=== PATIENT | female | born 1950 | race Hispanic/Latino ===

== ENCOUNTER 2020-01-25 17:57 | Emergency (ER) | payer MEDICARE ==
[~2020-01-25] VITALS: Ht 167.6 cm; Wt 77.1 kg
[~2020-01-25 17:57] MED LIST: BP MEDICINE; Z.0.METFORMIN HCL100; lantus
[2020-01-25] MEDS ORDERED: ASPIRIN 81 MG CHEW TAB PO ONE (18:45)
[2020-01-25 19:19] LABS: BASOPHILS # (AUTO) 0.1 (0.0-0.1); BASOPHILS % 0.5 % (0.0-1.0); EOSINOPHILS % 0.1 % (0.0-6.0); HEMATOCRIT 34.9 % (34.2-44.1); HEMOGLOBIN 10.8 g/dL (12.0-16.0); LYMPHOCYTES % 20.7 % (18.0-39.1); MEAN CORPUSCULAR HEMOGLOBIN 25.3 pg (28-32); MEAN CORPUSCULAR HGB CONC 30.9 g/dL (31-35); MEAN CORPUSCULAR VOLUME 81.7 fL (81-99); MONOCYTES # (AUTO) 1.3 (0.2-0.8); NEUTROPHILS # (AUTO) 9.9 (2.1-6.9); NEUTROPHILS % 69.1 % (38.7-80.0); PLATELET COUNT 344 x10e3/uL (140-360); RED BLOOD COUNT 4.27 x10e6/uL (3.6-5.1); RED CELL DISTRIBUTION WIDTH 13.7 % (11.7-14.4)
[2020-01-25 19:31] LABS: ALBUMIN 3.7 g/dL (3.5-5.0); ANION GAP 17.5 mmol/L (8-16); CALCIUM 8.8 mg/dL (8.4-10.2); POTASSIUM 4.5 mmol/L (3.5-5.1)
--- OUTSIDE RECORDS SUMMARY | 2020-01-25 19:37 | XMS REPORT | Clinical Summary ---
Author Author [facility] Organization [facility] Address Unknown Phone Unavailable Care Team Providers Care Journeyman Carpenter Name Role Phone Aaron Mayre MD PCP [phone] Allergies Not on File Medications Not on file Active Problems Not on file Encounters Care Team Description Date Type Specialty 11/12/2019 Travel Aaron Mayer MD Contact with and (suspected) exposure to other viral communicable diseases (Primary Dx) 10/29/2019 Transcribe Access Orders after 01/24/2019 Social History Date Tobacco Use Types Packs/Day Years Used Never Assessed Sex Assigned at Date Recorded Not on file Last Filed Vital Signs Not on file Plan of Treatment Health Maintenance Due Date Last Done Comments BREAST CANCER SCREENING 01/29/1998 COLONOSCOPY SCREENING 01/29/1998 SHINGLES VACCINES (#1) 01/29/1998 65+ PNEUMOCOCCAL VACCINE 01/29/2013 (1 of 1 - PPSV23) INFLUENZA VACCINE 11/13/2019 Procedures Comments Procedure Name Priority Date/Time Associated Diag nosis COVID-19 QUALITATIVE PCR Routine 11/12/[address] with and 1:13 PM CDT (suspected) exposure to other viral communicable diseases after 01/24/2019 Results * COVID-19 qualitative PCR (11/12/2019 1:13 PM CDT) Interpretation Negative results do not [facility] preclude 2019-nCoV infection [facility] and should not be used as the HOSPITAL sole basis for treatment or other patient management decisions. Negative results must be combined with clinical observations, patient history, and epidemiological information. COVID-19 Not-Detected Not-Detected [facility] qualitative PCR [facility] result [facility]OSPITAL COVID-19 See link below for PDF Lab [facility] qualitative PCR ReportComment: Case Number: [facility] [id number] [facility] Specimen Nasopharyngeal swab Performing Organization Address City/State/ZIP Code P jeanna Number [facility] DEPARTMENT OF [address] [place] [address] PATHOLOGY AND GENOMIC MEDICINE [address] [address] [facility] after 01/24/2019 Insurance Type Payer Benefit Subscriber ID Effective Phone Address Plan / Dates Group HMO [facility] MEDICARE AARP [id number] 2019-P MEDICARE resent ADVANTAGE PLAN HMO-POS ([id number]) Advance Directives For more information, please contact: [phone] Patient Employee Counselor Explanation Type Date Recorded Advance Directives, Living Will and Medical Power of Electrical Research Engineer
--- OUTSIDE RECORDS SUMMARY | 2020-01-25 19:38 | XMS REPORT | Continuity of Care Document ---
Author Author [facility] t Organization [facility] Address [address] [place] [address] Phone Unavailable Care Team Providers Care [employer]s Worker Name Role Phone RANJIT ESTRADA M.D. PCP MAYER, BARBARA Attphys Unavailable SANDHIR, AMBICA Attphys Unavailable Ileana, [place] Attphys Unavailable MERCED BLACKWELL M.D., MERCED WRIGHT M.D. Attphys Un available AFUWAPE, FERNANDAKUMAN Attphys Unavailable MERCED BLACKWELL M.D., Dolly BLACKWOOD Admphys Unavailable AFUWAPE, LUKUMAN Admphys Unavailable Payers Payer Name Policy Type Policy Number Effective Date Expiration Date S miranda [facility] MEDICAREAARP MEDICARE ADVANTAGE PLAN HMO-POS (WELLMED)[id number] [id number] 2019 00:00 :00 Viral Chappell Problems This patient has no known problems. Allergies, Adverse Reactions, Alerts Allergy Name Allergy Type Status Severity Reaction(s) Onset Date Inacti ve Date Treating Clinician Comments Source No Known Allergies DA Active U 2015-07-16 00:00:00 [facility] Social History Social Habit Start Date Stop Date Quantity Comments Source Sex Assigned At Estrella Chappell Medications Ordered Medication Name Filled Medication Name Start Date Stop Da te Current Medication? Ordering Clinician Indication Dosage Frequency Signature (SIG) Comments Components Source Bp Medicine Bp Medicine Yes C [facility] Lantus Lantus Yes [address] [facility] Metformin Hcl (Metformin Hcl Er) 1,000 Mg Tab.er.24 Me tformin Hcl (Metformin Hcl Er) 1,000 Mg Tab.er.[address] [facility] Procedures Procedure Date / Time Performed Performing Clinician Sour e COVID-19 QUALITATIVE PCR 2019-11-12 13:13:00 Barbara Mayer [facility] X-ray of chest, two views 2019-05-07 00:00:00 PHU WHITE I [facility] Plan of Care Planned Activity Planned Date Details Comments Source Future Scheduled Test 2019-11-13 00:00:00 INFLUENZA VACCINE [code = INFLUENZA VACCINE] [facility] Scheduled Test 2013-01-29 00:00:00 65+ PNEUMOCOCCAL V ACCINE (1 of 1 - PPSV23) [code = 65+ PNEUMOCOCCAL VACCINE (1 of 1 - PPSV23)] [facility] Future Scheduled Test 1998-01-29 00:00:00 BREAST CANCER SCRE ENING [code = BREAST CANCER SCREENING] [facility] Future Scheduled Test 1998-01-29 00:00:00 COLONOSCOPY SCREEN ING [code = COLONOSCOPY SCREENING] [facility] Scheduled Test 1998-01-29 00:00:00 SHINGLES VACCINES (#1) [code = SHINGLES VACCINES (#1)] [facility] Encounters Start Date/Time End Date/Time Encounter Type Admission Type Attendi [facility] Care Department Encounter ID Source 2020-01-21 13:36:00 2020-01-21 13:36:00 Outpatient MHSE [id number] [facility] 2019-11-12 00:00:00 2019-11-12 00:00:00 Outpatient ESTRADA MAYER [facility] [id number] Viral Chappell 2019-05-07 15:14:00 2019-05-07 17:14:00 Departed Emergency Room 1 PHU WHITE [facility] [id number] [facility] 2019-01-18 15:11:00 2019-01-18 15:11:00 Emergency E MHSE [id number] [facility] Results Test Description Test Time Test Comments Results Result Comments Source CHEST 2 VIEWS 2019-05-07 16:27:00 [facility] [address] [address] Patient Name: CATARINA KESSLER MR #: [id number] : 1950 Age/Sex: 69/F Req #: [id number] Adm Physician: Ordered by: PHU WHITE DO Report #: [id number] Location: ER Room/Bed: Procedure: [id number] DX/CHEST 2 VIEWS Exam Date: 05/07/19 Exam Time: 1530 REPORT STATUS: Signed Chest, 2 views, 05/07/2019. History: Fever and cough. Comparison: None available. Findings: The cardiomediastinal silhouette and pulmonary vasculature are within normal limits. The lungs are clear without evidence of consolidation or pleural effusion. Degenerative changes are present in the thoracic spine. There are no acute osseous or soft tissue abnormalities. Impression: No acute cardiopulmonary abnormality. Signed by: Joey Murphy on 05/07/2019 4:27 PM Dictated By: JOEY MURPHY MD 26 Transcribed By: ALEISHA on 05/07/197 COPY TO: PHU WHITE DO Influenza Virus Types A,B Antigen 2019-05-07 16:15:00 Test Item Influenza Virus Types A,B Antigen (test code = 52505-5) [facility] Streptococcus [id number] 16:07:00* Test Item Value Reference Range Interpretation Comments Group A Streptococcus Screen (test code = 57666-3) POSITIVE NEG [facility]IVE [facility]/BILAT/[id number] 13:08:54 CLINICAL INDICATION: M79.604 Pain in right legM79.605 Pain in left legMODALI TY: [employer] PreirusTECHNIQUE: Real time, high frequency Doppler wa veform and color imaging of the lower extremities are performed.COMPARISON: no ne FINDINGS:Common femoral, greater saphenous, femoral, popliteal and proximal calf veins are imaged. Spontaneous and phasic flow are observed. Vessels are c ompressible without evidence of intraluminal thrombus. No evidence of venous ref lux.IMPRESSION:No evidence of DVT in the bilateral lower extremities.POC Glucose, [id number] 12:24:00* Test Item Value Reference Range Interpretation Comments POC Glucose (test code = POCGLUC) 241 mg/dL 70-115 H Notify RN or MDIf you consider your patient critically ill, the [place] Accu-Chek InformII metershould not be used for Glucose determinations.Draw a venous Glucose and send to the Main Lab for Analysis. Culture, Blood [id number] 09:46:00Specimen: BloodCollected: 02/12/2017 20:23 Status: Final Last Updated: 02/18/2017 09:46 (1) ER Bed 14 Culture Result (Final) (Final) No Growth After 5 Days Culture, Blood Routine 2017-02-18 09:46:00Specimen: BloodCollected: 02/12/2017 20:00 Status: Final Last Updated: 02/18/2017 09:46 (1) ER Bed 14 Culture Result (Final) (Final) No Growth After 5 Days POC Glucose, [id number] 08:44:00* Test Item Value Reference Range Interpretation Comments POC Glucose (test code = POCGLUC) 159 mg/dL 70-115 H Notify RN or MDIf you consider your patient critically ill, the [place] Accu-Chek InformII metershould not be used for Glucose determinations.Draw a venous Glucose and send to the Main Lab for Analysis. CBC with [id number] 06:08:00* Test Item Value Reference Range Interpretation Comments WBC (test code = WBC) 17.0 K/cumm 4.4-10.5 H RBC (test code = RBC) 3.33 M/cumm 3.75-5.20 L Hemoglobin (test code = HGB) 8.9 gm/dL 12.2-14.8 L Hematocrit (test code = HCT) 28.3 % 36.5-44.4 L MCV (test code = MCV) 85.0 fL 80-100 N MCH (test code = MCH) 26.8 pg 27.0-32.5 L MCHC (test code = MCHC) 31.5 g/dL 32.0-37.5 L RDW (test code = RDW) 14.0 % 11.5-14.5 N Platelet Count (test code = PLTCT) 494 K/cumm 140-440 H MPV (test code = MPV) 6.8 fL Diff Method (test code = DIFFM) Auto Neutrophil (test code = NEUT) 81.7 % 36-70 H Lymphocyte (test code = LYMPH) 13.8 % 12-44 N Monocyte (test code = MONO) 3.8 % 0-11 N Eosinophil (test code = EOS) 0.6 % 0-7 N Basophil (test code = BASO) 0.2 % 0-2 N Neutro Abs (test code = ANEUT) 13.9 K/cumm 1.6-7.4 H Lymph Abs (test code = ALYMPH) 2.3 K/cumm 0.5-4.6 N [place] Abs (test code = AMONO) 0.7 K/cumm 0.0-1.2 N Eos Abs (test code = AEOS) 0.10 K/cumm 0.00-0.74 N Baso Abs (test code = ABASO) 0.0 K/cumm 0.00-0.21 N Magnesium, [id number] 05:53:00* Test Item Value Reference Range Interpretation Comments Magnesium (test code = MG) 1.7 mg/dL 1.7-2.5 N [id number] 05:53:00* Test Item Value Reference Range Interpretation Comments Phosphorus (test code = PO4) 3.0 mg/dL 2.70-4.50 N Basic Metabolic [id number] 05:53:00* Test Item Value Reference Range Interpretation Comments Sodium (test code = NA) 134 mmol/L 135-145 L Potassium (test code = K) 4.3 mmol/L 3.5-5.1 N Chloride (test code = CL) 96 mmol/L 98-105 L Carbon Dioxide (test code = CO2) 25 mmol/L 22-29 N Glucose (test code = GLU) 182 mg/dL 70-115 H Blood Urea Nitrogen (test code = BUN) 7 mg/dL 8-23 L Creatinine (test code = CREAT) 0.7 mg/dL 0.5-0.9 N Calcium (test code = CA) 8.1 mg/dL 8.3-10.5 L BUN/Creatinine Ratio (test code = BCRATIO) 10.0 Anion Gap (test code = AGAP) 13 mmol/L 7-16 N Estimated GFR (test code = GFR) >60 mL/min/1.73m2 eGFR (estimated Glomerular Filtration Rate) is an estimated value,calculated from the patient's serum creatinine using the MDRD equation.It is NOT the patient's actual GFR. The eGFR provides a more clinicallyuseful measure of kidney disease than serum creatinine alone.This calculation takes sex and race into account, if the informationis provided. If the race is not provided, and the patient isAfrican-Nigerien, multiply by 1.212. If sex is not provided, and thepatient is female, multiply by 0.742. Results for patients <18 years ofage have not been validated by the MDRD study and should be interpretedwith caution.eGFR Result Interpretation:eGFR > or = 60 is in the Normal RangeeGFR < 60 may mean kidney diseaseeGFR < 15 may mean kidney failureRanges recommended by the National Kidney Found ation,http://nkdep.nih.gov POC Glucose, [id number] 20:27:00* Test Item Value Reference Range Interpretation Comments POC Glucose (test code = POCGLUC) 222 mg/dL 70-115 H Notify RN or MDIf you consider your patient critically ill, the [place] Accu-Chek InformII metershould not be used for Glucose determinations.Draw a venous Glucose and send to the Main Lab for Analysis. POC Glucose, [id number] 17:55:00* Test Item Value Reference Range Interpretation Comments POC Glucose (test code = POCGLUC) 165 mg/dL 70-115 H Notify RN or MDIf you consider your patient critically ill, the [place] Accu-Chek InformII metershould not be used for Glucose determinations.Draw a venous Glucose and send to the Main Lab for Analysis. Urinalysis [id number] 13:03:00* Test Item Value Reference Range Interpretation Comments Color (test code = COLOR) Yellow Yellow,Straw,Pl yellow N Clarity (test code = CLAR) Clear Clear N Specific [place] (test code = SPGR) 1.005 1.001-1.035 N pH (test code = PH) 6.0 5.0-9.0 N Ketone (test code = KET) 15 mg/dL Negative A Glucose (test code = GLUCUR) Negative mg/dL Negative N Protein (test code = PROT) Negative mg/dL Negative N Bilirubin (test code = BILI) Negative mg/dL Negative N Occult Blood (test code = UDOB) Mod to Large Negative A Urobilinogen (test code = UROB) 4.0 mg/dL 0.2-1.0 H Nitrite (test code = NIT) Negative Negative N Leuk Esterase (test code = LEUK) Large Negative A Micros Exam (test code = MEXAM) Indicated Epithelial Cells (test code = EPI) 15-19 /LPF 0-30 A WBC, Urine (test code = UWBC) 15-19 /HPF 0-5 A RBC, Urine (test code = URBC) 0-3 /HPF 0-5 A Bacteria (test code = BACT) Many /HPF Yeast (test code = YEAST) Many /HPF POC Glucose, [id number] 12:32:00* Test Item Value Reference Range Interpretation Comments POC Glucose (test code = POCGLUC) 151 mg/dL 70-115 H Notify RN or MDIf you consider your patient critically ill, the [place] Accu-Chek InformII metershould not be used for Glucose determinations.Draw a venous Glucose and send to the Main Lab for Analysis. POC Glucose, [id number] 08:04:00* Test Item Value Reference Range Interpretation Comments POC Glucose (test code = POCGLUC) 102 mg/dL 70-115 N Notify RN or MDIf you consider your patient critically ill, the [place] Accu-Chek InformII metershould not be used for Glucose determinations.Draw a venous Glucose and send to the Main Lab for Analysis. Basic Metabolic [id number] 06:01:00* Test Item Value Reference Range Interpretation Comments Sodium (test code = NA) 134 mmol/L 135-145 L Potassium (test code = K) 3.8 mmol/L 3.5-5.1 N Chloride (test code = CL) 97 mmol/L 98-105 L Carbon Dioxide (test code = CO2) 25 mmol/L 22-29 N Glucose (test code = GLU) 94 mg/dL 70-115 N Blood Urea Nitrogen (test code = BUN) 8 mg/dL 8-23 N Creatinine (test code = CREAT) 0.7 mg/dL 0.5-0.9 N Calcium (test code = CA) 7.9 mg/dL 8.3-10.5 L BUN/Creatinine Ratio (test code = BCRATIO) 11.4 Anion Gap (test code = AGAP) 12 mmol/L 7-16 N Estimated GFR (test code = GFR) >60 mL/min/1.73m2 eGFR (estimated Glomerular Filtration Rate) is an estimated value,calculated from the patient's serum creatinine using the MDRD equation.It is NOT the patient's actual GFR. The eGFR provides a more clinicallyuseful measure of kidney disease than serum creatinine alone.This calculation takes sex and race into account, if the informationis provided. If the race is not provided, and the patient isAfrican-Nigerien, multiply by 1.212. If sex is not provided, and thepatient is female, multiply by 0.742. Results for patients <18 years ofage have not been validated by the MDRD study and should be interpretedwith caution.eGFR Result Interpretation:eGFR > or = 60 is in the Normal RangeeGFR < 60 may mean kidney diseaseeGFR < 15 may mean kidney failureRanges recommended by the National Kidney Found ation,http://nkdep.nih.gov Magnesium, [id number] 06:01:00* Test Item Value Reference Range Interpretation Comments Magnesium (test code = MG) 1.4 mg/dL 1.7-2.5 L [id number] 06:01:00* Test Item Value Reference Range Interpretation Comments Phosphorus (test code = PO4) 2.9 mg/dL 2.70-4.50 N CBC with [id number] 05:55:00* Test Item Value Reference Range Interpretation Comments WBC (test code = WBC) 17.0 K/cumm 4.4-10.5 H RBC (test code = RBC) 3.37 M/cumm 3.75-5.20 L Hemoglobin (test code = HGB) 8.8 gm/dL 12.2-14.8 L Hematocrit (test code = HCT) 28.5 % 36.5-44.4 L MCV (test code = MCV) 84.7 fL 80-100 N MCH (test code = MCH) 26.3 pg 27.0-32.5 L MCHC (test code = MCHC) 31.0 g/dL 32.0-37.5 L RDW (test code = RDW) 13.9 % 11.5-14.5 N Platelet Count (test code = PLTCT) 436 K/cumm 140-440 N MPV (test code = MPV) 6.7 fL Diff Method (test code = DIFFM) Auto Neutrophil (test code = NEUT) 78.9 % 36-70 H Lymphocyte (test code = LYMPH) 15.7 % 12-44 N Monocyte (test code = MONO) 4.5 % 0-11 N Eosinophil (test code = EOS) 0.7 % 0-7 N Basophil (test code = BASO) 0.2 % 0-2 N Neutro Abs (test code = ANEUT) 13.4 K/cumm 1.6-7.4 H Lymph Abs (test code = ALYMPH) 2.7 K/cumm 0.5-4.6 N [place] Abs (test code = AMONO) 0.8 K/cumm 0.0-1.2 N Eos Abs (test code = AEOS) 0.12 K/cumm 0.00-0.74 N Baso Abs (test code = ABASO) 0.0 K/cumm 0.00-0.21 N POC Glucose, [id number] 20:49:00* Test Item Value Reference Range Interpretation Comments POC Glucose (test code = POCGLUC) 189 mg/dL 70-115 H Notify RN or MDIf you consider your patient critically ill, the [place] Accu-Chek InformII metershould not be used for Glucose determinations.Draw a venous Glucose and send to the Main Lab for Analysis. POC Glucose, [id number] 15:49:00* Test Item Value Reference Range Interpretation Comments POC Glucose (test code = POCGLUC) 142 mg/dL 70-115 H Notify RN or MDIf you consider your patient critically ill, the [place] Accu-Chek InformII metershould not be used for Glucose determinations.Draw a venous Glucose and send to the Main Lab for Analysis. POC Glucose, [id number] 11:56:00* Test Item Value Reference Range Interpretation Comments POC Glucose (test code = POCGLUC) 146 mg/dL 70-115 H Notify RN or MDIf you consider your patient critically ill, the [place] Accu-Chek InformII metershould not be used for Glucose determinations.Draw a venous Glucose and send to the Main Lab for Analysis. POC Glucose, [id number] 08:40:00* Test Item Value Reference Range Interpretation Comments POC Glucose (test code = POCGLUC) 108 mg/dL 70-115 N Notify RN or MDIf you consider your patient critically ill, the [place] Accu-Chek InformII metershould not be used for Glucose determinations.Draw a venous Glucose and send to the Main Lab for Analysis. POC Glucose, [id number] 05:00:00* Test Item Value Reference Range Interpretation Comments POC Glucose (test code = POCGLUC) 74 mg/dL 70-115 N Notify RN or MDIf you consider your patient critically ill, the [place] Accu-Chek InformII metershould not be used for Glucose determinations.Draw a venous Glucose and send to the Main Lab for Analysis. POC Glucose, [id number] 19:52:00* Test Item Value Reference Range Interpretation Comments POC Glucose (test code = POCGLUC) 80 mg/dL 70-115 N Notify RN or MDIf you consider your patient critically ill, the [place] Accu-Chek InformII metershould not be used for Glucose determinations.Draw a venous Glucose and send to the Main Lab for Analysis. POC Glucose, [id number] 16:36:00* Test Item Value Reference Range Interpretation Comments POC Glucose (test code = POCGLUC) 100 mg/dL 70-115 N If you consider your patient critically ill, the [place] Accu-Chek InformII metershould not be used for Glucose determinations.Draw a venous Glucose and send to the Main Lab for Analysis. POC Glucose, [id number] 11:39:00* Test Item Value Reference Range Interpretation Comments POC Glucose (test code = POCGLUC) 136 mg/dL 70-115 H If you consider your patient critically ill, the [place] Accu-Chek InformII metershould not be used for Glucose determinations.Draw a venous Glucose and send to the Main Lab for Analysis. POC Glucose, [id number] 07:05:00* Test Item Value Reference Range Interpretation Comments POC Glucose (test code = POCGLUC) 76 mg/dL 70-115 N If you consider your patient critically ill, the [place] Accu-Chek InformII metershould not be used for Glucose determinations.Draw a venous Glucose and send to the Main Lab for Analysis. [id number] 05:40:00* Test Item Value Reference Range Interpretation Comments Phosphorus (test code = PO4) 2.9 mg/dL 2.70-4.50 N Basic Metabolic [id number] 05:40:00* Test Item Value Reference Range Interpretation Comments Sodium (test code = NA) 139 mmol/L 135-145 N Potassium (test code = K) 3.9 mmol/L 3.5-5.1 N Chloride (test code = CL) 104 mmol/L 98-105 N Carbon Dioxide (test code = CO2) 25 mmol/L 22-29 N Glucose (test code = GLU) 96 mg/dL 70-115 N Blood Urea Nitrogen (test code = BUN) 17 mg/dL 8-23 N Creatinine (test code = CREAT) 0.8 mg/dL 0.5-0.9 N Calcium (test code = CA) 7.7 mg/dL 8.3-10.5 L BUN/Creatinine Ratio (test code = BCRATIO) 21.3 Anion Gap (test code = AGAP) 10 mmol/L 7-16 N Estimated GFR (test code = GFR) >60 mL/min/1.73m2 eGFR (estimated Glomerular Filtration Rate) is an estimated value,calculated from the patient's serum creatinine using the MDRD equation.It is NOT the patient's actual GFR. The eGFR provides a more clinicallyuseful measure of kidney disease than serum creatinine alone.This calculation takes sex and race into account, if the informationis provided. If the race is not provided, and the patient isAfrican-Nigerien, multiply by 1.212. If sex is not provided, and thepatient is female, multiply by 0.742. Results for patients <18 years ofage have not been validated by the MDRD study and should be interpretedwith caution.eGFR Result Interpretation:eGFR > or = 60 is in the Normal RangeeGFR < 60 may mean kidney diseaseeGFR < 15 may mean kidney failureRanges recommended by the National Kidney Found ation,http://nkdep.nih.gov Magnesium, [id number] 05:40:00* Test Item Value Reference Range Interpretation Comments Magnesium (test code = MG) 2.0 mg/dL 1.7-2.5 N CBC with [id number] 05:35:00* Test Item Value Reference Range Interpretation Comments WBC (test code = WBC) 15.9 K/cumm 4.4-10.5 H RBC (test code = RBC) 3.32 M/cumm 3.75-5.20 L Hemoglobin (test code = HGB) 9.0 gm/dL 12.2-14.8 L Hematocrit (test code = HCT) 27.8 % 36.5-44.4 L MCV (test code = MCV) 83.6 fL 80-100 N MCH (test code = MCH) 27.1 pg 27.0-32.5 N MCHC (test code = MCHC) 32.5 g/dL 32.0-37.5 N RDW (test code = RDW) 13.5 % 11.5-14.5 N Platelet Count (test code = PLTCT) 416 K/cumm 140-440 N MPV (test code = MPV) 7.4 fL Diff Method (test code = DIFFM) Auto Neutrophil (test code = NEUT) 72.6 % 36-70 H Lymphocyte (test code = LYMPH) 21.3 % 12-44 N Monocyte (test code = MONO) 5.2 % 0-11 N Eosinophil (test code = EOS) 0.5 % 0-7 N Basophil (test code = BASO) 0.3 % 0-2 N Neutro Abs (test code = ANEUT) 11.5 K/cumm 1.6-7.4 H Lymph Abs (test code = ALYMPH) 3.4 K/cumm 0.5-4.6 N [place] Abs (test code = AMONO) 0.8 K/cumm 0.0-1.2 N Eos Abs (test code = AEOS) 0.08 K/cumm 0.00-0.74 N Baso Abs (test code = ABASO) 0.1 K/cumm 0.00-0.21 N POC Glucose, [id number] 20:31:00* Test Item Value Reference Range Interpretation Comments POC Glucose (test code = POCGLUC) 161 mg/dL 70-115 H Notify RN or MDIf you consider your patient critically ill, the [place] Accu-Chek InformII metershould not be used for Glucose determinations.Draw a venous Glucose and send to the Main Lab for Analysis. POC Glucose, [id number] 16:59:00* Test Item Value Reference Range Interpretation Comments POC Glucose (test code = POCGLUC) 118 mg/dL 70-115 H If you consider your patient critically ill, the [place] Accu-Chek InformII metershould not be used for Glucose determinations.Draw a venous Glucose and send to the Main Lab for Analysis. POC Glucose, [id number] 12:14:00* Test Item Value Reference Range Interpretation Comments POC Glucose (test code = POCGLUC) 125 mg/dL 70-115 H If you consider your patient critically ill, the [place] Accu-Chek InformII metershould not be used for Glucose determinations.Draw a venous Glucose and send to the Main Lab for Analysis. POC Glucose, [id number] 08:34:00* Test Item Value Reference Range Interpretation Comments POC Glucose (test code = POCGLUC) 114 mg/dL 70-115 N If you consider your patient critically ill, the [place] Accu-Chek InformII metershould not be used for Glucose determinations.Draw a venous Glucose and send to the Main Lab for Analysis. Glycosylated [id number] 06:02:00* Test Item Value Reference Range Interpretation Comments HBA1c (test code = HBA1C) 8.9 % 4.8-5.9 H Thyroid Stimulating Hormone (TSH)2017-02-14 05:39:00* Test Item Value Reference Range Interpretation Comments TSH (test code = TSH) 3.56 mIU/mL 0.270-4.200 N CBC with [id number] 05:33:00* Test Item Value Reference Range Interpretation Comments WBC (test code = WBC) 17.6 K/cumm 4.4-10.5 H RBC (test code = RBC) 3.49 M/cumm 3.75-5.20 L Hemoglobin (test code = HGB) 9.6 gm/dL 12.2-14.8 L Hematocrit (test code = HCT) 29.1 % 36.5-44.4 L MCV (test code = MCV) 83.4 fL 80-100 N MCH (test code = MCH) 27.5 pg 27.0-32.5 N MCHC (test code = MCHC) 33.0 g/dL 32.0-37.5 N RDW (test code = RDW) 13.3 % 11.5-14.5 N Platelet Count (test code = PLTCT) 393 K/cumm 140-440 N MPV (test code = MPV) 8.2 fL Diff Method (test code = DIFFM) Auto Neutrophil (test code = NEUT) 73.3 % 36-70 H Lymphocyte (test code = LYMPH) 20.0 % 12-44 N Monocyte (test code = MONO) 6.1 % 0-11 N Eosinophil (test code = EOS) 0.3 % 0-7 N Basophil (test code = BASO) 0.3 % 0-2 N Neutro Abs (test code = ANEUT) 12.9 K/cumm 1.6-7.4 H Lymph Abs (test code = ALYMPH) 3.5 K/cumm 0.5-4.6 N [place] Abs (test code = AMONO) 1.1 K/cumm 0.0-1.2 N Eos Abs (test code = AEOS) 0.04 K/cumm 0.00-0.74 N Baso Abs (test code = ABASO) 0.1 K/cumm 0.00-0.21 N Lipid [id number] 05:32:00* Test Item Value Reference Range Interpretation Comments Cholesterol (test code = CHOL) 201 mg/dL 0-200 H Triglycerides (test code = TRIG) 318 mg/dL 9-200 H HDL (test code = HDL) 8 mg/dL 50-60 L Chol/HDL (test code = CHOLPHDL) 25.1 Ratio 0.0-4.4 H LDL, Calculated (test code = LDLC) 129 0-130 N (NOTE)RISK OF HEART DISEASEPublished by Nigerien Heart AssociationAnalyte Optimal Boderline Increased RiskCHOL <200 200-239 >240TRIG <150 150-199 >200HDL Male: >60 <40HDL Female: >60 <50LDL <100 130-159 >160LDL NEAR OPTIMAL IS 100-129 VLDL (test code = VLDL) 64 mg/dL 5-40 H LDL/HDL (test code = LDLPHDL) 16 [id number] 05:32:00* Test Item Value Reference Range Interpretation Comments Phosphorus (test code = PO4) 2.1 mg/dL 2.70-4.50 L Magnesium, [id number] 05:32:00* Test Item Value Reference Range Interpretation Comments Magnesium (test code = MG) 1.9 mg/dL 1.7-2.5 N Basic Metabolic [id number] 05:32:00* Test Item Value Reference Range Interpretation Comments Sodium (test code = NA) 135 mmol/L 135-145 N Potassium (test code = K) 3.2 mmol/L 3.5-5.1 L Chloride (test code = CL) 97 mmol/L 98-105 L Carbon Dioxide (test code = CO2) 25 mmol/L 22-29 N Glucose (test code = GLU) 180 mg/dL 70-115 H Blood Urea Nitrogen (test code = BUN) 36 mg/dL 8-23 H Creatinine (test code = CREAT) 1.0 mg/dL 0.5-0.9 H Calcium (test code = CA) 8.0 mg/dL 8.3-10.5 L BUN/Creatinine Ratio (test code = BCRATIO) 36.0 Anion Gap (test code = AGAP) 13 mmol/L 7-16 N Estimated GFR (test code = GFR) 58 mL/min/1.73m2 eGFR (estimated Glomerular Filtration Rate) is an estimated value,calculated from the patient's serum creatinine using the MDRD equation.It is NOT the patient's actual GFR. The eGFR provides a more clinicallyuseful measure of kidney disease than serum creatinine alone.This calculation takes sex and race into account, if the informationis provided. If the race is not provided, and the patient isAfrican-Nigerien, multiply by 1.212. If sex is not provided, and thepatient is female, multiply by 0.742. Results for patients <18 years ofage have not been validated by the MDRD study and should be interpretedwith caution.eGFR Result Interpretation:eGFR > or = 60 is in the Normal RangeeGFR < 60 may mean kidney diseaseeGFR < 15 may mean kidney failureRanges recommended by the National Kidney Found ation,http://nkdep.nih.gov POC Glucose, [id number] 04:30:00* Test Item Value Reference Range Interpretation Comments POC Glucose (test code = POCGLUC) 162 mg/dL 70-115 H Notify RN or MDIf you consider your patient critically ill, the [place] Accu-Chek InformII metershould not be used for Glucose determinations.Draw a venous Glucose and send to the Main Lab for Analysis. Basic Metabolic [id number] 00:19:00* Test Item Value Reference Range Interpretation Comments Sodium (test code = NA) 127 mmol/L 135-145 L Potassium (test code = K) 5.3 mmol/L 3.5-5.1 H Chloride (test code = CL) 92 mmol/L 98-105 L Carbon Dioxide (test code = CO2) 25 mmol/L 22-29 N Glucose (test code = GLU) 417 mg/dL 70-115 HH RE AD BACK LAB VALUESVERIFIED BY REPEAT TESTINGBlossom @1218am 02/14/2017 kms Blood Urea Nitrogen (test code = BUN) 41 mg/dL 8-23 H Creatinine (test code = CREAT) 1.0 mg/dL 0.5-0.9 H Calcium (test code = CA) 7.9 mg/dL 8.3-10.5 L BUN/Creatinine Ratio (test code = BCRATIO) 41.0 Anion Gap (test code = AGAP) 10 mmol/L 7-16 N Estimated GFR (test code = GFR) 58 mL/min/1.73m2 eGFR (estimated Glomerular Filtration Rate) is an estimated value,calculated from the patient's serum creatinine using the MDRD equation.It is NOT the patient's actual GFR. The eGFR provides a more clinicallyuseful measure of kidney disease than serum creatinine alone.This calculation takes sex and race into account, if the informationis provided. If the race is not provided, and the patient isAfrican-Nigerien, multiply by 1.212. If sex is not provided, and thepatient is female, multiply by 0.742. Results for patients <18 years ofage have not been validated by the MDRD study and should be interpretedwith caution.eGFR Result Interpretation:eGFR > or = 60 is in the Normal RangeeGFR < 60 may mean kidney diseaseeGFR < 15 may mean kidney failureRanges recommended by the National Kidney Found ation,http://nkdep.nih.gov POC Glucose, [id number] 22:46:00* Test Item Value Reference Range Interpretation Comments POC Glucose (test code = POCGLUC) 416 mg/dL 70-115 HH Verify with Lab 20199& PELVIS W/O [id number] 10:09:47CT ABDOMEN AND PELVIS W/O CONTRASTHISTORY: Abdominal painCOMPARISON: None.TECHNIQUE: Axial images of the abdomen and pelvis were obtained withoutintravenous contrast. Coronal and sagittal reformats were provided. Oneor more of the following dose reduction techniques were used: Automatedexposure control, adjustment of the mA and/or kV according to patientsize, and/or utilization of iterative reconstruction technique.FINDINGS:Lower thorax: Unremarkable.Hepatobiliary: Unremarkable. No biliary ductal dilatation.Gallbladder: The gallbladder is surgically a bsent.Spleen: Unremarkable.Pancreas: Unremarkable.Adrenals: Unremarkable.Kidn eys/ureters: No hydronephrosis or nephrolithiasis is identified.Bowel: No abnor mal bowel wall thickening or evidence of obstruction. Theappendix is normal.Pelv ic organs/bladder: The urinary bladder shows moderatecircumferential wall thick ening. Several small degenerated fibroids arepresent in the uterus. No adnexal mass is seen.Vessels: Atherosclerotic calcifications are noted in the aorta and majorbranch vessels.Lymph nodes: No lymphadenopathy.Peritoneum/Retroperitoneum: No ascites or free air is identified. Thereis no free fluid collection.Bones/s oft tissues: Injection granulomas are seen in the right glutealregion. Subcutan eous thickening in the anterior abdominal wall islikely related to recent inject ion as well. The bones are intact.IMPRESSION:1. Moderate thickening of the uri nary bladder wall. Correlate withurinalysis to evaluate for UTI.2. No other ac tin abdominal or pelvic finding is identified.LOCATION: [id number] Complete 2017-02-12 22:56:00* Test Item Value Reference Range Interpretation Comments Color (test code = COLOR) Yellow Yellow,Straw,Pl yellow N Clarity (test code = CLAR) Clear Clear N Specific [place] (test code = SPGR) 1.007 1.001-1.035 N pH (test code = PH) 5.0 5.0-9.0 N Ketone (test code = KET) 50 mg/dL Negative A Glucose (test code = GLUCUR) Negative mg/dL Negative N Protein (test code = PROT) Negative mg/dL Negative N Bilirubin (test code = BILI) Negative mg/dL Negative N Occult Blood (test code = UDOB) Mod to Large Negative A Urobilinogen (test code = UROB) 0.2 mg/dL 0.2-1.0 N Nitrite (test code = NIT) Negative Negative N Leuk Esterase (test code = LEUK) Large Negative A Micros Exam (test code = MEXAM) Indicated Epithelial Cells (test code = EPI) 10-14 /LPF 0-30 A WBC, Urine (test code = UWBC) 10-25 /HPF 0-5 A RBC, Urine (test code = URBC) 5-10 /HPF 0-5 A Bacteria (test code = BACT) Few /HPF Lactic Acid [id number] 21:17:00* Test Item Value Reference Range Interpretation Comments Lactic Acid, Bld (test code = LAC) 1.2 mmol/L 0.5-1.9 N CBC with [id number] 19:41:00* Test Item Value Reference Range Interpretation Comments WBC (test code = WBC) 21.3 K/cumm 4.4-10.5 H RBC (test code = RBC) 3.86 M/cumm 3.75-5.20 N Hemoglobin (test code = HGB) 10.4 gm/dL 12.2-14.8 L Hematocrit (test code = HCT) 33.0 % 36.5-44.4 L MCV (test code = MCV) 85.4 fL 80-100 N MCH (test code = MCH) 26.9 pg 27.0-32.5 L MCHC (test code = MCHC) 31.5 g/dL 32.0-37.5 L RDW (test code = RDW) 13.8 % 11.5-14.5 N Platelet Count (test code = PLTCT) 276 K/cumm 140-440 N MPV (test code = MPV) 7.8 fL Diff Method (test code = DIFFM) Manual Neutrophil (test code = NEUT) 84.0 % 36-70 H Bands (test code = BAND) 4.0 % 0-6 N Lymphocyte (test code = LYMPH) 9.0 % 12-44 L Monocyte (test code = MONO) 2.0 % 0-11 N Metamyelocyte (test code = METAMYE) 1.0 % 0-0 H Neutro Abs (test code = ANEUT) 18.7 K/cumm 1.6-7.4 H Lymph Abs (test code = ALYMPH) 1.9 K/cumm 0.5-4.6 N [place] Abs (test code = AMONO) 0.4 K/cumm 0.0-1.2 N RBC Morphology (test code = RBCMRPH) Slight Anisocytosis Platelet Est (test code = PLTEST) Adequate Platelets on Smear Comprehensive Metabolic [id number] 19:29:00* Test Item Value Reference Range Interpretation Comments Sodium (test code = NA) 128 mmol/L 135-145 L Potassium (test code = K) 3.8 mmol/L 3.5-5.1 N Chloride (test code = CL) 86 mmol/L 98-105 L Carbon Dioxide (test code = CO2) 21 mmol/L 22-29 L Glucose (test code = GLU) 198 mg/dL 70-115 H Blood Urea Nitrogen (test code = BUN) 46 mg/dL 8-23 H Creatinine (test code = CREAT) 1.1 mg/dL 0.5-0.9 H Calcium (test code = CA) 8.3 mg/dL 8.3-10.5 N Prot Total (test code = TP) 6.1 g/dL 6.4-8.3 L Albumin (test code = ALB) 3.1 g/dL 3.5-5.2 L A/G Ratio (test code = AGRATIO) 1.0 Ratio Globulin (test code = GLOB) 3.0 2.9-3.1 N Bili Total (test code = TBIL) 1.4 mg/dL 0.1-0.9 H Alk Phos (test code = APHOS) 360 U/L 35-104 H AST (test code = AST) 22 U/L 1-32 N slight ly hemolyzed specimen ALT (test code = ALT) 28 U/L 1-33 N BUN/Creatinine Ratio (test code = BCRATIO) 41.8 Anion Gap (test code = AGAP) 21 mmol/L 7-16 H Estimated GFR (test code = GFR) 52 mL/min/1.73m2 eGFR (estimated Glomerular Filtration Rate) is an estimated value,calculated from the patient's serum creatinine using the MDRD equation.It is NOT the patient's actual GFR. The eGFR provides a more clinicallyuseful measure of kidney disease than serum creatinine alone.This calculation takes sex and race into account, if the informationis provided. If the race is not provided, and the patient isAfrican-Nigerien, multiply by 1.212. If sex is not provided, and thepatient is female, multiply by 0.742. Results for patients <18 years ofage have not been validated by the MDRD study and should be interpretedwith caution.eGFR Result Interpretation:eGFR > or = 60 is in the Normal RangeeGFR < 60 may mean kidney diseaseeGFR < 15 may mean kidney failureRanges recommended by the National Kidney Found ation,http://nkdep.nih.gov [id number] 19:27:00* Test Item Value Reference Range Interpretation Comments Lipase (test code = LIP) 63 U/L 13-60 H Troponin [id number] 13:52:00* Test Item Value Reference Range Interpretation Comments Troponin T (test code = YANET) <0.010 ng/mL 0.000-0.090 N Basic Metabolic [id number] 13:52:00* Test Item Value Reference Range Interpretation Comments Sodium (test code = NA) 135 mmol/L 135-145 N Potassium (test code = K) 4.0 mmol/L 3.5-5.1 N Chloride (test code = CL) 97 mmol/L 98-105 L Carbon Dioxide (test code = CO2) 28 mmol/L 22-29 N Glucose (test code = GLU) 125 mg/dL 70-115 H Blood Urea Nitrogen (test code = BUN) 17 mg/dL 8-23 N Creatinine (test code = CREAT) 0.7 mg/dL 0.5-0.9 N Calcium (test code = CA) 9.7 mg/dL 8.3-10.5 N BUN/Creatinine Ratio (test code = BCRATIO) 24.3 Anion Gap (test code = AGAP) 10 mmol/L 7-16 N Estimated GFR (test code = GFR) >60 mL/min/1.73m2 eGFR (estimated Glomerular Filtration Rate) is an estimated value,calculated from the patient's serum creatinine using the MDRD equation.It is NOT the patient's actual GFR. The eGFR provides a more clinicallyuseful measure of kidney disease than serum creatinine alone.This calculation takes sex and race into account, if the informationis provided. If the race is not provided, and the patient isAfrican-Nigerien, multiply by 1.212. If sex is not provided, and thepatient is female, multiply by 0.742. Results for patients <18 years ofage have not been validated by the MDRD study and should be interpretedwith caution.eGFR Result Interpretation:eGFR > or = 60 is in the Normal RangeeGFR < 60 may mean kidney diseaseeGFR < 15 may mean kidney failureRanges recommended by the National Kidney Found ation,http://nkdep.nih.gov CBC with [id number] 13:45:00* Test Item Value Reference Range Interpretation Comments WBC (test code = WBC) 12.4 K/cumm 4.4-10.5 H RBC (test code = RBC) 4.70 M/cumm 3.75-5.20 N Hemoglobin (test code = HGB) 12.0 gm/dL 12.2-14.8 L Hematocrit (test code = HCT) 39.2 % 36.5-44.4 N MCV (test code = MCV) 83.4 fL 80-100 N MCH (test code = MCH) 25.5 pg 27.0-32.5 L MCHC (test code = MCHC) 30.5 g/dL 32.0-37.5 L RDW (test code = RDW) 14.2 % 11.5-14.5 N Platelet Count (test code = PLTCT) 279 K/cumm 140-440 N MPV (test code = MPV) 8.7 fL Diff Method (test code = DIFFM) Auto Neutrophil (test code = NEUT) 68.6 % 36-70 N Lymphocyte (test code = LYMPH) 23.7 % 12-44 N Monocyte (test code = MONO) 1.4 % 0-11 N Eosinophil (test code = EOS) 5.6 % 0-7 N Basophil (test code = BASO) 0.8 % 0-2 N Neutro Abs (test code = ANEUT) 8.5 K/cumm 1.6-7.4 H Lymph Abs (test code = ALYMPH) 2.9 K/cumm 0.5-4.6 N [place] Abs (test code = AMONO) 0.2 K/cumm 0.0-1.2 N Eos Abs (test code = AEOS) 0.70 K/cumm 0.00-0.74 N Baso Abs (test code = ABASO) 0.1 K/cumm 0.00-0.21 N
[2020-01-25] MEDS ORDERED: SODIUM CHLORIDE 0.9% 500ML 500 ML IV STA (20:16)
[2020-01-25] MEDS ORDERED: SODIUM CHLORIDE 0.9% 50ML 50 ML ONE (20:44)
[2020-01-25] MEDS ORDERED: IOPAMIDOL 370 MG/ML 200 ML INFUS..BTL INJ ONE (20:44)
--- NOTE | 2020-01-25 21:15 | Emergency Department Note ---
History of Present Illnes History of Present Illness Chief Complaint: General Medicine Complaints History of Present Illness This is a 69 year old female Chief Complaint Comment Patient in from home with complaints of shortness of breath and chills. Patient was told to come by Dr. Mayer for evaluation of her lungs because routine blood work at his office revealed a positive D Dimer and she was experiencing the shortness of breath. Per patient, her shortness of breath has been going on for over 3 months. No acute distress noted. Patient has a 98-99% oxygen saturation in triage on room air. Historian: Patient Past Medical/Family History Physician Review I have reviewed the patient's past medical and family history. Any updates have been documented here. Past Medical History Recent Fever: No Clinical Suspicion of Infectio: No New/Unexplained Change in Ment: No Past Medical History: Hypertension, Diabetes, COPD, Asthma, GERD Past Surgical History: Cholecysctectomy, Other Surgery: Other Last Tetanus: 2011 Review of Systems Review of Systems Constitutional: Reports no symptoms EENTM: Reports no symptoms Cardiovascular: Reports no symptoms Respiratory: Reports as per HPI Gastrointestinal: Reports no symptoms Genitourinary: Reports no symptoms Musculoskeletal: Reports no symptoms Integumentary: Reports no symptoms Neurological: Reports no symptoms Psychological: Reports no symptoms Endocrine: Reports no symptoms Hematological/Lymphatic: Reports no symptoms Physical Exam Related Data Allergies: Coded Allergies: No Known Allergies (Unverified , 01/30/12) Triage Vital Signs Vital Signs Date Time Temp Pulse Resp B/P (MAP) Pulse Ox O2 Delivery O2 Flow Rate FiO2 01/25/20 18:49 99.6 89 18 153/59 98 Room Air Vital signs reviewed: Yes Physical Exam CONSTITUTIONAL Constitutional: Present well-developed, Present well-nourished HENT HENT: Present normocephalic, Present atraumatic, Present oropharynx clear/moist, Present nose normal HENT L/R: Present left ext ear normal, Present right ext ear normal EYES Eyes: Reports PERRL, Reports conjunctivae normal NECK Neck: Present ROM normal PULMONARY Pulmonary: Present effort normal, Present breath sounds normal CARDIOVASCULAR Cardiovascular: Present regular rhythm, Present heart sounds normal, Present capillary refill normal, Present normal rate GASTROINTESTINAL Abdominal: Present soft, Present nontender, Present bowel sounds normal GENITOURINARY Genitourinary: Present exam deferred SKIN Skin: Present warm, Present dry MUSCULOSKELETAL Musculoskeletal: Present ROM normal NEUROLOGICAL Neurological: Present alert, Present oriented x 3, Present no gross motor or sensory deficits PSYCHOLOGICAL Psychological: Present mood/affect normal, Present judgement normal Results Laboratory Result Diagram: 01/25/20189901/25/201899 Laboratory Laboratory Tests Test 01/25/20 19:00 White Blood Count 14.28 x10e3/uL (4.8-10.8) Red Blood Count 4.27 x10e6/uL (3.6-5.1) Hemoglobin 10.8 g/dL (12.0-16.0) Hematocrit 34.9 % (34.2-44.1) Mean Corpuscular Volume 81.7 fL (81-99) Mean Corpuscular Hemoglobin 25.3 pg (28-32) Mean Corpuscular Hemoglobin Concent 30.9 g/dL (31-35) Red Cell Distribution Width 13.7 % (11.7-14.4) Platelet Count 344 x10e3/uL (140-360) Neutrophils (%) (Auto) 69.1 % (38.7-80.0) Lymphocytes (%) (Auto) 20.7 % (18.0-39.1) Monocytes (%) (Auto) 9.0 % (4.4-11.3) Eosinophils (%) (Auto) 0.1 % (0.0-6.0) Basophils (%) (Auto) 0.5 % (0.0-1.0) Neutrophils # (Auto) 9.9 (2.1-6.9) Lymphocytes # (Auto) 3.0 (1.0-3.2) Monocytes # (Auto) 1.3 (0.2-0.8) Eosinophils # (Auto) 0.0 (0.0-0.4) Basophils # (Auto) 0.1 (0.0-0.1) Absolute Immature Granulocyte (auto 0.09 x10e3/uL (0-0.1) Sodium Level 134 mmol/L (136-145) Potassium Level 4.5 mmol/L (3.5-5.1) Chloride Level 97 mmol/L (98-107) Carbon Dioxide Level 24 mmol/L (22-29) Anion Gap 17.5 mmol/L (8-16) Blood Urea Nitrogen 14 mg/dL (7-26) Creatinine 1.00 mg/dL (0.57-1.11) Estimat Glomerular Filtration Rate 55 ML/MIN (60-) BUN/Creatinine Ratio 14 (6-25) Glucose Level 222 mg/dL (74-118) Calcium Level 8.8 mg/dL (8.4-10.2) Total Bilirubin 0.5 mg/dL (0.2-1.2) Aspartate Amino Transf (AST/SGOT) 14 IU/L (5-34) Alanine Aminotransferase (ALT/SGPT) 17 IU/L (0-55) Alkaline Phosphatase 69 IU/L (40-150) Troponin I 0.004 ng/mL (0-0.300) B-Type Natriuretic Peptide 13.5 pg/mL (0-100) Total Protein 7.5 g/dL (6.5-8.1) Albumin 3.7 g/dL (3.5-5.0) Globulin 3.8 g/dL (2.3-3.5) Albumin/Globulin Ratio 1.0 (0.8-2.0) Lipase 16 U/L (8-78) Lab results reviewed: Yes Imaging Imaging results reviewed: Yes Diagnostics Tests Diagnostic test(s) reviewed: Yes Procedures 12 Lead ECG Interpretation ECG Interpretation : Concrete Vibrator Operator: Interpreted by ED physician Date: Jan 25, 2020 Rhythm: paced Rate: normal BPM: 64 QRS axis: left ST segments normal: Yes T waves normal: Yes Clinical Impression: non-specific ECG Assessment & Plan Medical Decision Making [facility] 69 y.o F presents for SoB and elevated D-dimer in clinic. Initial diff includes PE vs PNA vs CHF vs ACS. W/u including CTA chest shows possible PNA and will treat as such. VSS, within acceptable limits. Will DC home with Doxy and instructions to f/u w/ PCP. Reassessment Reassessment time: 23:00 Reassessment Well appearing, NAD Assessment & Plan Final Impression: (1) PNA (pneumonia) Depart Disposition: HOME, SELF-CARE Last Vital Signs Date Time Temp Pulse Resp B/P (MAP) Pulse Ox O2 Delivery O2 Flow Rate FiO2 01/25/20 18:49 99.6 89 18 153/59 98 Room Air Home Meds Reported Medications [bp medicine] No Conflict Check 01/30/12 [lantus] No Conflict Check, 50 daily 01/30/12 Metformin Hcl (METFORMIN HCL ER) 1,000 Mg Tab.er.24, twice dialy 01/30/12 Medications in the ED Aspirin 81 mg PRN ONCE PO ; Start 01/25/20 at 18:45; Stop 01/25/20 at 18:37; Status DC Sodium Chloride 500 ml @ 0 mls/hr Q0M STAT IV Last administered on 01/25/20at 20:40; Admin Dose 500 MLS/HR; Start 01/25/20 at 20:16; Stop 01/25/20 at 20:17; Status DC Sodium Chloride 50 ml @ ud STK-MED ONCE .ROUTE ; Start 01/25/20 at 20:44; Stop 01/25/20 at 20:37; Status DC Iopamidol 74,000 mg STK-MED ONCE INJ ; Start 01/25/20 at 20:44; Stop 01/25/20 at 20:37; Status DC VISHNU ARZATE MD Jan 25, 2020 21:15
--- NOTE | 2020-01-25 22:32 | Diagnostic Imaging Report ---
EXAM: CT Chest WITH contrast (PE Protocol) INDICATION: ^R/o PE ^[id number] ^2109 COMPARISON: None TECHNIQUE: Chest was scanned utilizing a multidetector helical scanner from the lung apex through the level of the diaphragm after administration of IV contrast. Thin section reconstructions were obtained with special concentration on the pulmonary arteries. Coronal and sagittal reformations were obtained. Dose modulation, iterative reconstruction, and/or weight based adjustment of the mA/kV was utilized to reduce the radiation dose to as low as reasonably achievable. Pulmonary embolism protocol was performed. IV CONTRAST: 100 mL of Isovue-370 COMPLICATIONS: None RADIATION DOSE: Total DLP: 454.51 mGy*cm Estimated effective dose: (DLP x 0.014 x size factor) mSv CTDIvol has been reviewed. It is below the limits set by the Radiation Protocol Committee (RPC). FINDINGS: LINES/ TUBES: None. LUNGS AND AIRWAYS: No filling defect is identified within the pulmonary arteries to the segmental level. Left upper quadrant calcified granuloma. Evaluation of the lungs are mildly limited due to respiratory motion artifact. Small focal right middle lobe haziness (series 3, image 52). Airways are normal. PLEURA: The pleural spaces are clear. HEART AND MEDIASTINUM: The thyroid gland is normal. No mediastinal, hilar or axillary lymphadenopathy. The heart is borderline in size.. There is no pericardial effusion. . Main pulmonary artery measures 2.5 cm in diameter. Mild atherosclerotic calcification of aorta and coronary arteries. UPPER ABDOMEN: Cholecystectomy. Partially seen bilateral perinephric fat stranding. Small hiatal hernia. BONES: Degenerative changes of thoracic spine. SOFT TISSUES: Unremarkable. IMPRESSION: No pulmonary emboli. Small focal right middle lobe haziness, likely subsegmental atelectasis. Developing pneumonia cannot be entirely excluded in appropriate clinical context. Signed by: Dr. Fabien Shaver MD on 01/25/2020 10:29 PM
[2020-01-25 22:58] VITALS: BP 164/73
== END 2020-01-25 23:12 | disposition home or self-care (01) ==
LOC: ER 19:35
DX: J18.9 Pneumonia, unspecified organism (principal); R50.9 Fever, unspecified; R06.02 Shortness of breath; E11.65 Type 2 diabetes mellitus with hyperglycemia; I10 Essential (primary) hypertension; J44.9 Chronic obstructive pulmonary disease, unspecified; K21.9 Gastro-esophageal reflux disease without esophagitis
CPT/HCPCS: 36415; 71260; 80053; 83690; 83880; 84484; 85025; 93005; 99284; J7040; Q9967

== ENCOUNTER 2021-10-03 12:09 | Inpatient (IN) | payer MEDICARE ==
[~2021-10-03] VITALS: Ht 167.6 cm; Wt 77.1 kg
[~2021-10-03 12:09] MED LIST changes: -Z.0.METFORMIN HCL100; +Z.0.METFORMIN HCL100 PO
[2021-10-03] MEDS ORDERED: Morphine 4mg INJECTION 4 MG/ML INJ IV PRN (12:30)
[2021-10-03] MEDS: METHYLPREDNISOLONE SOD SUCC 125 MG/2ML VIAL IV SCH ×2 (13:04→20:07)
[2021-10-03] MEDS: SODIUM CHLORIDE 0.9% 1000ML 1,000 ML IV SCH (13:04)
[2021-10-03 13:20] LABS: CREATINE KINASE 33 IU/L (29-168)
[2021-10-03 13:52] LABS: CREATINE KINASE MB < 1.00 ng/mL (0-4.3)
[2021-10-03] MEDS: ALBUTEROL/IPRATROPIUM 3 ML NEB NEB SCH ×3 (15:00→23:31)
[2021-10-03] MEDS ORDERED: VENLAFAXINE H37.5 M2 PO (16:10)
[2021-10-03] MEDS ORDERED: TRESIBA FL100 UNIT/1 SQ (16:10)
[2021-10-03] MEDS ORDERED: NEURONTIN300 MG PO (16:10)
[2021-10-03] MEDS ORDERED: OZEMPIC0.25 MG/0. SC (16:10)
[2021-10-03] MEDS ORDERED: SYNJARDY XR 251 EACH PO (16:10)
[2021-10-03] MEDS ORDERED: BENICAR5 MG PO (16:10)
[2021-10-03 16:12] VITALS: BP 174/61
[2021-10-03 16:25] VITALS: BP 174/61
[2021-10-03 17:45] VITALS: BP 140/64
[2021-10-03 20:00] VITALS: BP 138/58
[2021-10-03 21:16] LABS: CREATINE KINASE 36 IU/L (29-168)
[2021-10-03 21:20] LABS: CREATINE KINASE MB < 1.00 ng/mL (0-4.3)
[2021-10-04] VITALS (7 sets, daily range): BP systolic 122–153; BP diastolic 53–67
[2021-10-04] MEDS: ALBUTEROL/IPRATROPIUM 3 ML NEB NEB SCH ×6 (03:00→23:00)
[2021-10-04 05:35] LABS: HEMATOCRIT 34.3 % (34.2-44.1); HEMOGLOBIN 10.6 g/dL (12.0-16.0); LYMPHOCYTES # (AUTO) 1.4 (1.0-3.2); MEAN CORPUSCULAR HEMOGLOBIN 24.7 pg (28-32); MEAN CORPUSCULAR HGB CONC 30.9 g/dL (31-35); MEAN CORPUSCULAR VOLUME 79.8 fL (81-99); MONOCYTES # (AUTO) 0.1 (0.2-0.8); MONOCYTES % 0.9 % (4.4-11.3); NEUTROPHILS # (AUTO) 5.4 (2.1-6.9); NEUTROPHILS % 78.8 % (38.7-80.0); PLATELET COUNT 248 x10e3/uL (140-360); RED CELL DISTRIBUTION WIDTH 15.4 % (11.7-14.4)
[2021-10-04 05:56] LABS: ANION GAP 17.2 mmol/L (8-16); CALCIUM 8.2 mg/dL (8.4-10.2); CREATININE, SERUM 0.81 mg/dL (0.57-1.11); POTASSIUM 4.2 mmol/L (3.5-5.1)
[2021-10-04 06:18] LABS: CREATINE KINASE 25 IU/L (29-168)
[2021-10-04 06:22] LABS: CREATINE KINASE MB < 1.00 ng/mL (0-4.3)
[2021-10-04] MEDS: SODIUM CHLORIDE 0.9% 1000ML 1,000 ML IV SCH (07:00)
[2021-10-04] MEDS: INSULIN REGULAR, HUMAN 100 UNIT/1 ML SQ SCH ×3 (08:00→17:00)
[2021-10-04] MEDS ORDERED: DEXTROSE 50% SYRINGE 50 ML IV PRN (08:45)
[2021-10-04] MEDS: METHYLPREDNISOLONE SOD SUCC 125 MG/2ML VIAL IV SCH ×2 (09:26→20:53)
[2021-10-04] MEDS: INSULIN GLARGINE 100 UNITS/ML VIAL SQ SCH (20:50)
[2021-10-05] VITALS: BP 133/55
[2021-10-05] MEDS: ALBUTEROL/IPRATROPIUM 3 ML NEB NEB SCH ×4 (03:00→14:59)
[2021-10-05 04:00] VITALS: BP 115/47
[2021-10-05 05:54] LABS: BASOPHILS % 0.1 % (0.0-1.0); HEMATOCRIT 31.9 % (34.2-44.1); HEMOGLOBIN 9.9 g/dL (12.0-16.0); LYMPHOCYTES # (AUTO) 1.3 (1.0-3.2); LYMPHOCYTES % 12.3 % (18.0-39.1); MEAN CORPUSCULAR HEMOGLOBIN 24.8 pg (28-32); MEAN CORPUSCULAR VOLUME 79.8 fL (81-99); MONOCYTES # (AUTO) 0.3 (0.2-0.8); MONOCYTES % 2.6 % (4.4-11.3); NEUTROPHILS # (AUTO) 8.6 (2.1-6.9); NEUTROPHILS % 83.8 % (38.7-80.0); PLATELET COUNT 247 x10e3/uL (140-360); RED CELL DISTRIBUTION WIDTH 15.9 % (11.7-14.4)
[2021-10-05 06:25] LABS: ANION GAP 13.4 mmol/L (8-16); CALCIUM 8.6 mg/dL (8.4-10.2); CREATININE, SERUM 0.82 mg/dL (0.57-1.11); POTASSIUM 4.4 mmol/L (3.5-5.1)
[2021-10-05 07:58] VITALS: BP 139/63
[2021-10-05] MEDS ORDERED: METFORMIN HCL 500 MG TAB CR PO SCH (08:00)
[2021-10-05 08:04] VITALS: BP 139/63
[2021-10-05] MEDS: INSULIN REGULAR, HUMAN 100 UNIT/1 ML SQ SCH ×2 (08:16→12:30)
[2021-10-05] MEDS: INSULIN GLARGINE 100 UNITS/ML VIAL SQ SCH (08:19)
[2021-10-05] MEDS: METHYLPREDNISOLONE SOD SUCC 125 MG/2ML VIAL IV SCH (08:34)
[2021-10-05] MEDS ORDERED: NON-FORMULARY MEDICATION (Metformin Hcl (Metformin Hcl Er) 500 MG) PO SCH (09:00)
[2021-10-05] MEDS ORDERED: OLMESARTAN MEDOXOMIL 5 MG TABLET PO SCH (09:00)
[2021-10-05 11:42] VITALS: BP 137/83
[2021-10-05] MEDS ORDERED: PREDNISONE5 MG PO (13:39)
[2021-10-05] MEDS ORDERED: CIPRO500 MG PO (13:39)
== END 2021-10-05 15:49 | disposition home or self-care (01) | DRG 203 ==
LOC: ER 12:28 → ERHOLD 12:29 → MED/SURG2 15:25
PROVIDERS: ADMIT Internal Medicine; ATTEND Internal Medicine
DX: J45.41 Moderate persistent asthma with (acute) exacerbation (principal); J20.9 Acute bronchitis, unspecified; I10 Essential (primary) hypertension; E11.65 Type 2 diabetes mellitus with hyperglycemia; K21.9 Gastro-esophageal reflux disease without esophagitis; Z90.49 Acquired absence of other specified parts of digestive tract; Z79.84 Long term (current) use of oral hypoglycemic drugs; Z79.4 Long term (current) use of insulin; Z20.822 Contact with and (suspected) exposure to COVID-19
CPT/HCPCS: 36415; 71045; 80048; 82550; 82553; 82948; 84484; 85025; 87040; 93005; 94799; 99284; J1815; J1817; J2930; J7030